=== PATIENT | male | born 1970 | race African-American/Black ===

== ENCOUNTER 2017-04-26 13:06 | Emergency (ER) | payer BC ==
[~2017-04-26] VITALS: Ht 177.8 cm; Wt 91.0 kg
[2017-04-26 13:10] VITALS: BP 157/83; PULSE 63; RESP 12; TEMP 98.5; O2SAT 99
--- NOTE | 2017-04-26 14:30 | PD ---
HPI Chief Complaint: Skin Problem Time Seen by Provider: 14:30 Travel History International Travel<30 days: No Contact w/Intl Traveler<30days: No Traveled to known affect area: No History of Present Illness HPI 46-year-old male presents to emergency Department with complaint of an itchy rash to bilateral forearms and around his neck times one and half months. Denies fever, vomiting. Denies others with rash. Says it is nowhere else on his body. Denies new exposures to lotions, soaps, detergents, foods, medications. Denies airway edema, tongue edema, shortness of breath, wheezing, difficulty breathing. He works picking up garbage and does not know he's been exposed to something that he is allergic to. Has tried topical Benadryl, hydrocortisone, oral Benadryl for symptom management. Symptoms are mild in severity. Allergies to laurie. Has no other medical complaints. No modifying factors or associated signs and symptoms. PFSH Past Medical History Medical History: Denies Significant Hx Hx Anticoagulant Therapy: No Cardiovascular Problems: No Chemotherapy: No Cerebrovascular Accident: No Diabetes: No Diminished Hearing: No Respiratory: No Past Surgical History Surgical History: No Previous Surgery Social History Alcohol Use: Yes (occ) Tobacco Use: Yes (1/2 PPD) Substance Use: No Allergies-Medications (Allergen,Severity, Reaction): Coded Allergies: laurie (Unverified Allergy, Unknown, Anaphylaxis, 04/26/17) Reported Meds & Prescriptions Reported Meds & Active Scripts Active Elimite Topical (Permethrin) 5% Cream 1 Applic TOPICAL ONCE Deltasone (Prednisone) 20 Mg Tab 40 Mg PO DAILY 4 Days start 04/27/2017 Review of Systems Except as stated in HPI: all other systems reviewed are Neg Physical Exam Narrative GENERAL: Well-nourished, well-developed black male patient, in no acute distress ; afebrile, nontoxic-appearing SKIN: Warm and dry. Erythemic, dry rash noted to the volar aspect of bilateral forearms and around the sides and back of his neck; no cellulitis noted. HEAD: Atraumatic. Normocephalic. EYES: Pupils equal and round. No scleral icterus. No injection or drainage. ENT: Mucosa pink and moist. Airway patent. NECK: Trachea midline. CARDIOVASCULAR: Regular rate. RESPIRATORY: No accessory muscle use. GASTROINTESTINAL: Flat. MUSCULOSKELETAL: No obvious deformities. No clubbing. No cyanosis. No edema. NEUROLOGICAL: Awake and alert. Oriented 3. No obvious cranial nerve deficits. Motor grossly within normal limits. Normal speech. PSYCHIATRIC: Appropriate mood and affect; insight and judgment normal. Data Data Last Documented VS Vital Signs Date Time Temp Pulse Resp B/P (MAP) Pulse Ox O2 Delivery O2 Flow Rate FiO2 04/26/17 14:55 04/26/17 13:10 98.5 63 12 99 Orders Orders Prednisone (Deltasone) (04/26/17 14:45) Ed Discharge Order (04/26/17 14:37) [facility] Medical Decision Making Medical Screen Exam Complete: Yes Emergency Medical Condition: Yes Medical Record Reviewed: Yes Differential Diagnosis Dermatitis, Contact dermatitis, scabies, eczema Narrative Course 46-year-old male with a rash and nonspecific skin eruption to bilateral forearms and around the sides and back of his neck. He is afebrile and nontoxic -appearing. Denies fever, vomiting. Rashes been present for a month and a half. It is itchy in nature. No one else has similar symptoms. Suspecting dermatitis. I will also prescribe Elimite cream for possible scabies. Deltasone and Elimite cream prescribed for home. Instructed patient to follow up with dermatology. Instructed patient to follow up with primary care provider. Patient verbalizes understanding and agreement with treatment plan. Patient is medically cleared and stable for discharge. Discussed reasons to return to the emergency department. Patient agrees with treatment plan. The patients vital signs are stable and the patient is stable for outpatient follow- up and treatment. Patient discharged home, stable and in no acute distress. Diagnosis Primary Impression: Rash and nonspecific skin eruption Referrals: [facility] Mail Officer Primary Care Physician Patient Instructions: Acute Rash (ED), Contact Dermatitis (ED), General Instructions, Scabies (ED) Additional Instructions: Take oral steroids as prescribed [id number] topicals to reduce itch Benadryl as directed and as needed to reduce itch Follow-up with your primary care provider Follow-up with ordained minister Return to the emergency department immediately with worsening of symptoms Med/Other Pt SpecificInfo: Prescription(s) given Scripts Permethrin Topical (Elimite Topical) 5% Cream 1 APPLIC TOPICAL ONCE for Scabies, #1 TUBE 0 Refills Prov: Gricelda Mathis 04/26/17 Prednisone (Deltasone) 20 Mg Tab 40 MG PO DAILY for 4 Days, #8 TAB 0 Refills start 04/27/2017 Prov: Gricelda Mathis 04/26/17 Disposition: 01 DISCHARGE HOME Condition: Stable Gricelda Mathis Apr 26, 2017 14:30
[2017-04-26] MEDS ORDERED: PRED-503 PO (14:36)
[2017-04-26] MEDS ORDERED: PERM5CRE11 TOPICAL (14:36)
[2017-04-26] MEDS ORDERED: predniSONE 20 MG TAB PO ONE (14:45)
== END 2017-04-26 14:56 | disposition home or self-care (01) ==
LOC: NEPK 13:06
DX: R21 Rash and other nonspecific skin eruption (principal)
CPT/HCPCS: 99284; J7512